=== PATIENT | male | born 1975 | race Caucasian/White ===

== ENCOUNTER 2017-07-21 11:59 | Emergency (ER) | payer SELFPAY ==
[~2017-07-21] VITALS: Ht 180.3 cm; Wt 90.5 kg
[2017-07-21 12:00] VITALS: BP 159/74; PULSE 101; RESP 20; TEMP 98.6; O2SAT 94
[2017-07-21] MEDS ORDERED: SODIUM CHLOR 0.9% 1000 ML INJ 1,000 ML IV SCH (12:46)
--- NOTE | 2017-07-21 12:46 | PD ---
HPI Chief Complaint: Cold / Flu Symptoms Time Seen by Provider: 12:37 Travel History International Travel<30 days: No Contact w/Intl Traveler<30days: No Traveled to known affect area: No History of Present Illness HPI The patient is a 41-year-old male who presents emergency department for nausea, vomiting, diarrhea. The patient is currently in the local area, from [place], for the races. The patient ate at a [employer] restaurant last night, awakened at 3 AM with generalized abdominal pain and cramping with nausea, vomiting, diarrhea. The patient describes the diarrhea as loose, watery, brown without any visible blood. He does complain of body aches and mild nasal congestion. He denies any chest pain or cough. Symptoms are moderate. He states he ate at the restaurant alone, his friends ate at another establishment, they have no symptoms. PFSH Past Medical History Narrative Medical Sleep apnea Past Surgical History Narrative Surgical Leroy tooth removal Social History Tobacco Use: Yes (2 packs of cigarettes per day) Allergies-Medications (Allergen,Severity, Reaction): Coded Allergies: No Known Allergies (Unverified , 07/21/17) Reported Meds & Prescriptions Reported Meds & Active Scripts Active No Active Prescriptions or Reported Medications Review of Systems Except as stated in HPI: all other systems reviewed are Neg General / Constitutional: No: Fever HENT: Positive: Congestion, No: Sore Throat Cardiovascular: No: Chest Pain or Discomfort Respiratory: No: Cough, Shortness of Breath Gastrointestinal: Positive: Nausea, Vomiting, Diarrhea, Abdominal Pain Genitourinary: No: Dysuria Musculoskeletal: Positive: Myalgias Physical Exam Narrative GENERAL: Awake, alert, 41-year-old male who appears his stated age and is in no acute respiratory distress. SKIN: Focused skin assessment warm/dry. HEAD: Atraumatic. Normocephalic. EYES: Pupils equal and round. No scleral icterus. No injection or drainage. ENT: No nasal bleeding or discharge. Mucous membranes pink and moist. NECK: Trachea midline. No JVD. CARDIOVASCULAR: Regular, tachycardic with a heart rate of 100. RESPIRATORY: No accessory muscle use. Clear to auscultation. Breath sounds equal bilaterally. Abdomen: Obese, non-tender, no rebound tenderness, guarding, rigidity. MUSCULOSKELETAL: No obvious deformities. No clubbing. No cyanosis. No edema. NEUROLOGICAL: Awake and alert. No obvious cranial nerve deficits. Motor grossly within normal limits. Normal speech. PSYCHIATRIC: Appropriate mood and affect; insight and judgment normal. Data Data Last Documented VS Vital Signs Date Time Temp Pulse Resp B/P (MAP) Pulse Ox O2 Delivery O2 Flow Rate FiO2 07/21/17 13:01 96 Room Air 07/21/17 12:00 98.6 101 20 Orders Orders Influenzae A/B Antigen (07/21/17 12:21) Electrocardiogram (07/21/17 ) Influenzae A/B Antigen (07/21/17 12:42) Complete Blood Count With Diff (07/21/17 12:46) Comprehensive Metabolic Panel (07/21/17 12:46) Lipase (07/21/17 12:46) Iv Access Insert/Monitor (07/21/17 12:46) Ecg Monitoring (07/21/17 12:46) Oximetry (07/21/17 12:46) Morphine Inj (Morphine Inj) (07/21/17 13:00) Ondansetron Inj (Zofran Inj) (07/21/17 13:00) Sodium Chlor 0.9% 1000 Ml Inj (Ns 1000 M (07/21/17 12:46) Sodium Chloride 0.9% Flush (Ns Flush) (07/21/17 13:00) Famotidine Inj (Pepcid Inj) (07/21/17 13:00) Loperamide (Imodium) (07/21/17 14:30) Labs Laboratory Tests Test 07/21/17 12:50 White Blood Count 13.9 TH/MM3 Red Blood Count 5.79 MIL/MM3 Hemoglobin 17.2 GM/DL Hematocrit 50.4 % Mean Corpuscular Volume 87.1 FL Mean Corpuscular Hemoglobin 29.8 PG Mean Corpuscular Hemoglobin Concent 34.2 % Red Cell Distribution Width 14.1 % Platelet Count 216 TH/MM3 Mean Platelet Volume 8.0 FL Neutrophils (%) (Auto) 95.0 % Lymphocytes (%) (Auto) 1.2 % Monocytes (%) (Auto) 2.8 % Eosinophils (%) (Auto) 0.3 % Basophils (%) (Auto) 0.7 % Neutrophils # (Auto) 13.2 TH/MM3 Lymphocytes # (Auto) 0.2 TH/MM3 Monocytes # (Auto) 0.4 TH/MM3 Eosinophils # (Auto) 0.0 TH/MM3 Basophils # (Auto) 0.1 TH/MM3 CBC Comment DIFF FINAL Differential Comment Blood Urea Nitrogen 14 MG/DL Creatinine 0.90 MG/DL Random Glucose 111 MG/DL Total Protein 7.7 GM/DL Albumin 3.5 GM/DL Calcium Level 8.3 MG/DL Alkaline Phosphatase 138 U/L Aspartate Amino Transf (AST/SGOT) 26 U/L Alanine Aminotransferase (ALT/SGPT) 28 U/L Total Bilirubin 0.7 MG/DL Sodium Level 135 MEQ/L Potassium Level 4.2 MEQ/L Chloride Level 102 MEQ/L Carbon Dioxide Level 24.9 MEQ/L Anion Gap 8 MEQ/L Estimat Glomerular Filtration Rate 93 ML/MIN Lipase 105 U/L MDM Medical Decision Making Medical Screen Exam Complete: Yes Emergency Medical Condition: Yes Medical Record Reviewed: Yes Interpretation(s) EKG reveals sinus tachycardia with a heart rate of 102. Left anterior fascicular block. RSR prime noted in V1. Laboratory Tests Test 07/21/17 12:50 White Blood Count 13.9 TH/MM3 Red Blood Count 5.79 MIL/MM3 Hemoglobin 17.2 GM/DL Hematocrit 50.4 % Mean Corpuscular Volume 87.1 FL Mean Corpuscular Hemoglobin 29.8 PG Mean Corpuscular Hemoglobin Concent 34.2 % Red Cell Distribution Width 14.1 % Platelet Count 216 TH/MM3 Mean Platelet Volume 8.0 FL Neutrophils (%) (Auto) 95.0 % Lymphocytes (%) (Auto) 1.2 % Monocytes (%) (Auto) 2.8 % Eosinophils (%) (Auto) 0.3 % Basophils (%) (Auto) 0.7 % Neutrophils # (Auto) 13.2 TH/MM3 Lymphocytes # (Auto) 0.2 TH/MM3 Monocytes # (Auto) 0.4 TH/MM3 Eosinophils # (Auto) 0.0 TH/MM3 Basophils # (Auto) 0.1 TH/MM3 CBC Comment DIFF FINAL Differential Comment Blood Urea Nitrogen 14 MG/DL Creatinine 0.90 MG/DL Random Glucose 111 MG/DL Total Protein 7.7 GM/DL Albumin 3.5 GM/DL Calcium Level 8.3 MG/DL Alkaline Phosphatase 138 U/L Aspartate Amino Transf (AST/SGOT) 26 U/L Alanine Aminotransferase (ALT/SGPT) 28 U/L Total Bilirubin 0.7 MG/DL Sodium Level 135 MEQ/L Potassium Level 4.2 MEQ/L Chloride Level 102 MEQ/L Carbon Dioxide Level 24.9 MEQ/L Anion Gap 8 MEQ/L Estimat Glomerular Filtration Rate 93 ML/MIN Lipase 105 U/L Differential Diagnosis Differential diagnosis includes food poisoning, gastroenteritis, gastritis, pancreatitis, hepatitis, influenza, viral syndrome, dehydration, electrolyte abnormality. Narrative Course IV was established, labs are drawn and sent, and the patient was placed on cardiac telemetry monitoring and continuous pulse oximetry monitoring. The patient was administered Zofran and IV fluids. Influenza screen was sent to lab. White count is mildly elevated. Influenza screen is negative. LFTs and lipase are unremarkable. The patient's vomiting resolved, over, he continues of diarrhea. The patient was given a by mouth challenge with lavonne ishmael. The patient tolerated lavonne ishmael without difficulty. The [facility] morning to [place], still has diarrhea, therefore, was administered loperamide 4 mg. Diagnosis Primary Impression: Gastroenteritis Additional Impression: Nausea vomiting and diarrhea Patient Instructions: General Instructions Additional Instructions: Medications as directed. Clear liquid diet and advance as tolerated. Follow- up with your primary physician. Please provide a patient a copy of his labs at discharge. Return if symptoms worsen or progress. Med/Other Pt SpecificInfo: Prescription(s) given Scripts Loperamide (Loperamide) 2 Mg Cap 2 MG PO DIRECTED Y for DIARRHEA, #20 CAP 0 Refills One capsule after each loose stool. Not to exceed 8 capsules per day. Prov: Carlos Rabago MD 07/21/17 Ondansetron Odt (Zofran Odt) 4 Mg Tab 4 MG SL Q6HR Y for Nausea/Vomiting, #10 TAB 0 Refills Prov: Carlos Rabago MD 07/21/17 Disposition: DISCHARGE HOME Condition: Stable Carlos Rabago MD Jul 21, 2017 12:46
[2017-07-21] MEDS ORDERED: FAMOTIDINE 20 MG/2 ML VIAL IV PUSH ONE (13:00)
[2017-07-21] MEDS ORDERED: MORPHINE SULFATE 4 MG/ML INJ IV PUSH ONE (13:00)
[2017-07-21] MEDS ORDERED: ONDANSETRON HCL 4 MG/2 ML VIAL IVP ONE (13:00)
[2017-07-21] MEDS ORDERED: SODIUM CHLORIDE 0.9% FLUSH 10 ML FLUSH IV FLUSH PRN (13:00)
[2017-07-21 13:01] VITALS: O2SAT 96
[2017-07-21 13:25] LABS: AUTOMATED NEUTROPHIL # 13.2 TH/MM3 (1.8-7.7); BASOPHIL # 0.1 TH/MM3 (0-0.2); BASOPHIL % 0.7 % (0.0-2.0); EOSINOPHIL % 0.3 % (0.0-4.0); HEMATOCRIT 50.4 % (39.0-51.0); HEMOGLOBIN 17.2 GM/DL (13.0-17.0); LYMPH % 1.2 % (9.0-44.0); LYMPHOCYTE # 0.2 TH/MM3 (1.0-4.8); MEAN CELL VOLUME 87.1 FL (80.0-100.0); MEAN CORPUSCULAR HEMOGLOBIN 29.8 PG (27.0-34.0); MEAN CORPUSCULAR HGB CONC 34.2 % (32.0-36.0); MONO % 2.8 % (0.0-8.0); MONOCYTE # 0.4 TH/MM3 (0-0.9); PLATELET COUNT 216 TH/MM3 (150-450); RED BLOOD COUNT 5.79 MIL/MM3 (4.50-5.90); RED CELL DISTRIBUTION WIDTH 14.1 % (11.6-17.2); WHITE BLOOD COUNT 13.9 TH/MM3 (4.0-11.0)
[2017-07-21 13:40] LABS: ALKALINE PHOSPHATASE 138 U/L (45-117); TOTAL BILIRUBIN ADULT 0.7 MG/DL (0.2-1.0); TOTAL PROTEIN 7.7 GM/DL (6.4-8.2)
[2017-07-21 13:41] LABS: ALBUMIN 3.5 GM/DL (3.4-5.0); ALT (GPT) 28 U/L (12-78); AST (GOT) 26 U/L (15-37); BICARBONATE 24.9 MEQ/L (21.0-32.0); BLOOD UREA NITROGEN 14 MG/DL (7-18); CALCIUM 8.3 MG/DL (8.5-10.1); CHLORIDE 102 MEQ/L (98-107); GLOMERULAR FILTRATION RATE 93 ML/MIN (>89); GLUCOSE,RANDOM 111 MG/DL (74-106); SODIUM (NA) 135 MEQ/L (136-145)
[2017-07-21] MEDS ORDERED: ZOFR4TAB3 SL (14:29)
[2017-07-21] MEDS ORDERED: LOPE2CAP PO (14:29)
[2017-07-21] MEDS ORDERED: LOPERAMIDE HCL 2 MG CAP PO ONE (14:30)
--- NOTE | 2017-07-22 23:12 | EKG ---
Date Performed: 07/21/2017 Time Performed: 12:29:58 PTAGE: 41 years EKG: SINUS TACHYCARDIA LEFT ANTERIOR FASCICULAR BLOCK ABNORMAL ECG NO PREVIOUS TRACING DOCTOR: Ej Lovell Interpretating Date/Time 07/22/2017 23:01:19
== END 2017-07-21 14:44 | disposition home or self-care (01) ==
LOC: NEPD 11:59
DX: K52.9 Noninfective gastroenteritis and colitis, unspecified (principal); R00.0 Tachycardia, unspecified
CPT/HCPCS: 80053; 83690; 85025; 87804; 93005; 96361; 96374; 96375; 99284; J2270; J2405; J7030